=== PATIENT | female | born 1940 | race American Indian/Alaskan Native ===

== ENCOUNTER 2016-11-16 09:53 | Inpatient (IN) | payer MEDICARE ==
[2016-11-16] MEDS ORDERED: SUBLIMAZE IV ONE ×3 (11:30→13:30)
[2016-11-16] MEDS ORDERED: SUBLIMAZE ONE (11:36)
[2016-11-16 12:13] LABS: Hematocrit 34.7 % (30.3-42.9); Hemoglobin 11.3 gm/dl (10.1-14.3); Mean Corpuscular HGB Conc 32 % (30-34); Mean Corpuscular Hemoglobin 30 pg (28-32); Mean Corpuscular Volume 93 fl (79-97); Platelet Count 361 K/mm3 (140-440); Red Blood Count 3.73 M/mm3 (3.65-5.03); Red Cell Distribution Width 17.8 % (13.2-15.2)
[2016-11-16 12:14] LABS: White Blood Count 23.1 K/mm3 (4.5-11.0)
[2016-11-16 12:34] LABS: Erythrocyte Sedimentation Rate 100 mm/Hr (0-20)
[2016-11-16 12:37] LABS: Potassium TNR mmol/L (3.6-5.0); Sodium TNR mmol/L (137-145)
[2016-11-16 12:38] LABS: Anion Gap TNR mmol/L; BUN/Creatinine Ratio TNR; Blood Urea Nitrogen TNR mg/dL (7-17); Calcium TNR mg/dL (8.4-10.2); Carbon Dioxide TNR mmol/L (22-30); Chloride TNR mmol/L (98-107); Glucose TNR mg/dL (65-100)
[2016-11-16] MEDS ORDERED: VANCOMYCIN/NS 1 GM/250 ML 1 GM/250 ML BAG IV ONE (12:40)
[2016-11-16 13:38] LABS: Basophils % (Manual) 0 % (0.0-1.8); Blastocytes % (Manual) 0 %; Eosinophils % (Manual) 0 % (0.0-4.3)
[2016-11-16 13:39] LABS: Anisocytosis 1+; Diff Status Complete; Target Cells Few
--- NOTE | 2016-11-16 13:51 | Emergency Department Report ---
HPI - General Chief Complaint: Extremity Problem,Nontraumatic Time Seen by Provider: 11/16/16 11:21 - HPI HPI: 76-year-old afterward female presents to the emergency department with complaint of a swollen right upper extremity that is beginning progressively worse over the past 3 weeks. 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 Since that time it has become swollen with some list during an weeping. Patient has a history of end-stage renal disease on hemodialysis and the affected right upper extremity is where she has her dialysis fistula as well. She denies any fever, nausea, vomiting, chest pain or shortness of breath. She has not taken anything for symptoms prior to presentation. ED Past Medical Hx - Past Medical History Previous Medical History?: Yes Hx Hypertension: Yes Hx Renal Disease: Yes - Surgical History Past Surgical History?: Yes Additional Surgical History: hysterectomy, fistula in righ arm, neck surgery - Social History Smoking Status: Never Smoker Substance Use Type: None - Medications Home Medications: Home Medications Medication Instructions Recorded Confirmed Last Taken Type Clopidogrel Bisulfate [Plavix] 75 mg PO DAILY 11/11/13 11/11/13 11/10/13 History Sevelamer Carbonate [Renvela] 800 mg PO TIDWM 11/11/13 11/11/13 11/10/13 History cloNIDine [Catapres] 0.2 mg PO BID 11/11/13 11/11/13 11/10/13 History ED Review of Systems ROS: Stated complaint: RT ARM SWOLLEN AND PAINFUL Other details as noted in HPI Comment: All other systems reviewed and negative Constitutional: denies: chills, fever Eyes: denies: eye pain, eye discharge, vision change ENT: denies: ear pain, throat pain Respiratory: denies: cough, shortness of breath, wheezing Cardiovascular: edema. denies: chest pain, palpitations Gastrointestinal: denies: abdominal pain, nausea, diarrhea Musculoskeletal: joint swelling, arthralgia, myalgia Skin: lesions. denies: pruritus Neurological: denies: headache, weakness, paresthesias Physical Exam - Physical Exam Vital Signs: Vital Signs 11/16/16 11/16/16 10:58 12:00 Temperature 98.5 F Pulse Rate 87 Respiratory 16 18 Rate Blood Pressure 125/54 [Left] O2 Sat by Pulse 100 Oximetry Physical Exam: GENERAL: The patient is well-developed well-nourished. HEENT: Normocephalic. Atraumatic. Extraocular motions are intact. Patient has moist mucous membranes. Pupils equal reactive to light bilaterally. NECK: Supple. Trachea is midline. CHEST/LUNGS: Clear to auscultation. There is no respiratory distress noted. HEART/CARDIOVASCULAR: Regular. There is no tachycardia. There is no gallop rub or murmur. ABDOMEN: Abdomen is soft, nontender. Patient has normal bowel sounds. There is no abdominal distention. SKIN: Patient has diffuse swelling of the right upper extremity that is worst in the forearm and hand. There is a bulla or blister to the dorsum of the hand that is weeping serous fluid. There is no erythema or warmth. There is some darkening of the skin from the mid forearm distally. NEURO: The patient is awake, alert, and oriented. The patient is cooperative. The patient has no focal neurologic deficits. The patient has normal speech. MUSCULOSKELETAL: She has tenderness to palpation along the right upper extremity worst from the elbow distally. Patient has some decreased range of motion of the fingers and hand secondary to swelling but she is able to move all of the portions of her right upper extremity. Palpable radial pulse. ED Course Vital Signs 11/16/16 11/16/16 10:58 12:00 Temperature 98.5 F Pulse Rate 87 Respiratory 16 18 Rate Blood Pressure 125/54 [Left] O2 Sat by Pulse 100 Oximetry - Consultations Consultation #1: I spoke with the burn attending at [facility] who did not feel that this patient had any signs of Roberts-Jessee syndrome or TEN and did not accept transfer to their facility. This physician felt that maybe the patient had a vascular problem from her dialysis fistula. I spoke with the vascular surgeon on-call, Dr. Willett, who felt that the presentation sounded as if it could be a central stenosis versus a graft infection. He felt that it was a low probability and not a presentation that appear consistent with any type of ischemic condition. He recommends nothing by mouth after midnight and they will evaluate her and possibly do a fistulogram. 11/16/16 22:26 ED Medical Decision Making - Lab Data Result diagrams: 11/16/16 12:01 11/16/16 14:08 - Radiology Data Radiology results: report reviewed, image reviewed interpreted by me: X-ray of the right humerus, forearm and hand do not show any fracture, dislocation or any acute process other than diffuse soft tissue edema. CT of the right upper extremity without contrast shows severe diffuse soft tissue edema noted in the entire upper extremity with no evidence of focal abscess, osteoarthritis or other specific processes. An AV graft is noted medially in the lower arm. - Medical Decision Making 76-year-old female presents the emergency department with a few weeks of right upper show me swelling but then she developed even worse swelling to the hand and some blistering and weeping after dialysis yesterday. Patient is able to move her arm and fingers but it is restricted due to the amount of swelling. It is not an obvious cellulitis as there is no erythema or warmth. There is no purulent discharge but there is some serous weeping. Patient's labs are mostly unremarkable except for the patient has a 22,000 white count. There is some renal sufficiency with the patient is end-stage renal disease on dialysis. First thought was that this could be a venous blood clot so a venous Doppler was done that did not show any signs of upper extremity DVT. X-rays were done of the entire right upper extremity to rule out osteomyelitis and there were no lytic lesions or any acute process seen. A CT of the upper extremity was also done that did not show any specific focal abscess, osteomyelitis or specific process. This did not appear to be any emergent dermatological condition but the concern was that if there was enough to provide a needed that this could be treated more as a burn. I spoke with the burn attending at [place] who felt that this was not Rafael Jessee's or possibly TEN and did not require transfer to their facility. I spoke with the vascular surgeon who felt that it could be central stenosis versus graft infection and is willing to further evaluate the patient on the floor. Patient has been made nothing by mouth after midnight. Patient was covered with some IV antibiotics after getting blood cultures. There is been pain control and IV fluid resuscitation. Patient is been accepted for admission by the hospitalist, Dr. Lind. Critical Care Time: No Critical care attestation.: If time is entered above; I have spent that time in minutes in the direct care of this critically ill patient, excluding procedure time. ED Disposition Clinical Impression: Swelling of right upper extremity, ESRD (end stage renal disease), Skin bulla Leukocytosis Qualifiers: Leukocytosis type: unspecified Qualified Code(s): D72.829 - Elevated white blood cell count, unspecified Disposition: OP ADMITTED IP TO THIS HOSP Is pt being admited?: Yes Condition: Fair Time of Disposition: 22:40
--- NOTE | 2016-11-16 13:55 | Admit Criteria Form ---
Admission Criteria Documentation: SEPSIS and OTHER FEBRILE ILLNESS, W/O FOCAL INFECTION Clinical Indications for Admission to Inpatient Care ( Place 'X' for any and all applicable criteria): Admission is indicated for ANY ONE of the following (1)(2)(3)(4): [ ] I. Bacteremia [ ]II. Suspected or identified specific infection requiring hospitalization (eg, meningitis, endocarditis) [ ]III. Hemodynamic instability [ ]IV. Altered mental status [ ]V. Failure or unavailability of outpatient antimicrobial treatment [ ]. Hypoxemia [ ]VII. Seizures [ ]VIII. High-risk febrile neutropenia [ ]IX. Need for parenteral antibiotic in patient who is likely to abuse vascular access device (eg, injection drug user) [A](7) [ ]X. Temperature greater than 104.9 degrees F (40.5 degrees C) (oral) [X ]XI. Inpatient admission required rather than observation care because of ANY ONE of the following: []1) Specific infection identified that is too severe for outpatient treatment or observation care trial [ ]2) Metabolic disorder (eg, hypoglycemia, hyperglycemia, metabolic acidosis) that is severe or persistent [ ]3) Temperature greater than 103.1 degrees F (39.5 degrees C) ( oral) that is not responsive to observation care treatment [ ]4) IV fluid to replace significant ongoing (eg, for over 24 hours) losses (> 3 L/m2 per day) [ ]5) Supplemental oxygen or respiratory treatments for over 24 hours that is performable only in acute inpatient setting [ ]6) Parenteral nutrition regimen need that must be implemented on inpatient basis [ ]7) Strict or protective (eg, laminar flow) isolation [X ]8) Other condition, treatment or monitoring requiring inpatient admission Extended stay beyond goal length of stay may be needed for(1)(3) [ ]a) Sepsis or septic shock(22) [ ]b) Positive blood cultures [ ]c) Insufficient oral intake [ ]d) High-risk febrile neutropenia(29)(30) [ ]e) Continued fever and clinical instability [ ]f) Clinically active comorbid illness (e.g,heart failure, renal failure , diabetes) The original [facility] [employer] content created by Fabrice Vasques has been revised. The portions of the content which have been revised are identified through the use of italic text or in bold, and Fabrice Vasques has neither reviewed nor approved the modified material. All other unmodified content is copyright [facility]. Please see references footnoted in the original [facility] edition 2016 Admission Criteria Met: Yes
--- NOTE | 2016-11-16 13:59 | XRay Report ---
RIGHT HUMERUS, 2 VIEWS History: Swelling and pain. Findings: Osteopenia is noted. There is no evidence for fracture or malalignment. No bone lesion. Diffuse vascular calcifications and mild soft tissue edema are noted. Impression: Chronic findings as described. No acute process.
--- NOTE | 2016-11-16 14:00 | XRay Report ---
RIGHT FOREARM: History: Pain and swelling. There is mild osteopenia. The radius and ulna are intact. No fracture or bone lesion. Diffuse vascular calcifications and mild soft tissue swelling are noted. IMPRESSION: Osteopenia. Soft tissue swelling. No acute process is noted.
--- NOTE | 2016-11-16 14:02 | XRay Report ---
RIGHT HAND, 3 views: History: Pain and swelling. Osteopenia. The distal fifth digit has been amputated through the mid middle phalanx. There is an overlying bandage. It is unclear if this is acute or chronic. The remaining bony structures are intact. No fracture or bone lesion. Mild osteoarthritic changes are noted. Moderate diffuse soft tissue swelling. IMPRESSION: Amputation of the fifth digit. Osteopenia. Soft tissue swelling.
[2016-11-16 14:58] LABS: BUN/Creatinine Ratio 2.5; Calcium 10.2 mg/dL (8.4-10.2); Chloride 92.3 mmol/L (98-107)
[2016-11-16] MEDS ORDERED: D50W (25GM) IV ONE ×5 (15:07→21:04)
[2016-11-16 15:28] LABS: Potassium 4.9 mmol/L (3.6-5.0)
--- NOTE | 2016-11-16 16:32 | Cat Scan Report ---
CT of the right upper extremity without contrast. History: Swelling and pain. Findings: There is diffuse and severe subcutaneous edema throughout the entire right upper extremity. There is no evidence of focal fluid collection or other sign of focal abscess. An AV graft is identified medially with extensive vascular calcification. The bones of the upper extremity demonstrate no focal areas of destruction or other signs of osteomyelitis. Minimal periosteal reaction is seen in the mid humeral shaft, probably chronic. Impression: Severe diffuse soft tissue edema involving the entire upper extremity with no evidence of focal abscess, osteomyelitis, or other specific processes. An AV graft is noted medially in the lower arm.
--- NOTE | 2016-11-16 17:07 | History and Physical Report ---
Medications and Allergies Allergies Allergy/AdvReac Type Severity Reaction Status Date / Time codeine Allergy Hives Verified 11/11/13 12:27 Penicillins Allergy Hives Verified 11/11/13 12:27 Home Medications Medication Instructions Recorded Confirmed Last Taken Type Clopidogrel Bisulfate [Plavix] 75 mg PO DAILY 11/11/13 11/11/13 11/10/13 History Sevelamer Carbonate [Renvela] 800 mg PO TIDWM 11/11/13 11/11/13 11/10/13 History cloNIDine [Catapres] 0.2 mg PO BID 11/11/13 11/11/13 11/10/13 History Exam - Constitutional Vitals: Temp Pulse Resp BP Pulse Ox 98.4 F 91 H 16 100/56 100 11/16/16 15:48 11/16/16 15:48 11/16/16 15:48 11/16/16 15:48 11/16/16 15:48 Results - Labs CBC & Chem 7: 11/16/16 12:01 11/16/16 14:08 Labs: Abnormal lab results 11/16/16 11/16/16 11/16/16 Range/Units 12:01 14:08 15:41 WBC 23.1 H (4.5-11.0) K/mm3 RDW 17.8 H (13.2-15.2) % Seg Neuts % (Manual) 80.0 H (40.0-70.0) % Lymphocytes % (Manual) 1.0 L (13.4-35.0) % Monocytes % (Manual) 8.0 H (0.0-7.3) % Seg Neutrophils # Man 18.5 H (1.8-7.7) K/mm3 Lymphocytes # (Manual) 0.2 L (1.2-5.4) K/mm3 Monocytes # (Manual) 1.8 H (0.0-0.8) K/mm3 Chloride 92.3 L (98-107) mmol/L Carbon Dioxide 31 H (22-30) mmol/L Creatinine 3.6 H (0.7-1.2) mg/dL Glucose 38 L* (65-100) mg/dL POC Glucose 170 H (70-105)
[2016-11-16] MEDS ORDERED: NACL 0.9% 1000 ML 1,000 ML ONE (20:23)
--- NOTE | 2016-11-16 20:34 | Consultation ---
History of Present Illness - Reason for Consult Consult date: 11/16/16 Requesting physician: CHINO MCDOWELL - History of Present Illness 76 YO Female with HTN, ESRD on HD(MWF). Pt states that she has experienced swelling of her right arm. Pt states that she underwent dialysis today, and began having swelling of her right hand which extended up her arm. The swelling began about 2-3 hours after dialysis was completed. Pt states that she just does not feel well. Pt denies fever, chills, CP, Palpitations, NVD, syncope, recent ill contacts. Pt seen and evaluated in ED. CT of RUE reveals diffuse soft tissue swelling without abscess. Past History Past Medical History: ESRD, hypertension Medications and Allergies Allergies Allergy/AdvReac Type Severity Reaction Status Date / Time codeine Allergy Hives Verified 11/11/13 12:27 Penicillins Allergy Hives Verified 11/11/13 12:27 Home Medications Medication Instructions Recorded Confirmed Last Taken Type Clopidogrel Bisulfate [Plavix] 75 mg PO DAILY 11/11/13 11/11/13 11/10/13 History Sevelamer Carbonate [Renvela] 800 mg PO TIDWM 11/11/13 11/11/13 11/10/13 History cloNIDine [Catapres] 0.2 mg PO BID 11/11/13 11/11/13 11/10/13 History Review of Systems Constitutional: other (arm swelling) Exam - Constitutional Vitals: Temp Pulse Resp BP Pulse Ox 98.3 F 80 14 96/37 100 11/16/16 18:00 11/16/16 18:00 11/16/16 18:00 11/16/16 18:00 11/16/16 18:00 General appearance: Present: mild distress, disheveled - EENT Eyes: Present: PERRL ENT: hearing intact, clear oral mucosa - Neck Neck: Present: supple, normal ROM - Respiratory Respiratory effort: normal Respiratory: bilateral: CTA - Cardiovascular Heart Sounds: Present: S1 & S2. Absent: rub, click - Extremities Extremities: pulses symmetrical, No edema Extremity abnormal: edema, other (RUE confluent blister wit weeping, erythema around border, ) Peripheral Pulses: within normal limits - Abdominal General gastrointestinal: Present: soft, non-tender, non-distended, normal bowel sounds Female genitourinary: Present: normal - Integumentary Integumentary: Present: clear, warm, dry - Musculoskeletal Musculoskeletal: generalized weakness - Psychiatric Psychiatric: appropriate mood/affect, intact judgment & insight Results - Labs CBC & Chem 7: 11/16/16 12:01 11/16/16 14:08 Labs: Abnormal lab results 11/16/16 11/16/16 11/16/16 Range/Units 12:01 14:08 15:41 WBC 23.1 H (4.5-11.0) K/mm3 RDW 17.8 H (13.2-15.2) % Seg Neuts % (Manual) 80.0 H (40.0-70.0) % Lymphocytes % (Manual) 1.0 L (13.4-35.0) % Monocytes % (Manual) 8.0 H (0.0-7.3) % Seg Neutrophils # Man 18.5 H (1.8-7.7) K/mm3 Lymphocytes # (Manual) 0.2 L (1.2-5.4) K/mm3 Monocytes # (Manual) 1.8 H (0.0-0.8) K/mm3 Chloride 92.3 L (98-107) mmol/L Carbon Dioxide 31 H (22-30) mmol/L Creatinine 3.6 H (0.7-1.2) mg/dL Glucose 38 L* (65-100) mg/dL POC Glucose 170 H (70-105) Assessment and Plan - Patient Problems (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 Pt has blister that extends from the hand to the antecubital fossa. CT of RUE shows soft tissue edema without abscess. Recommend transfer for dermatologic evaluation, wound care, (2) ESRD (end stage renal disease) Current Visit: Yes Status: Acute Plan to address problem: Pt dialyzed today. currently stable. (3) HTN (hypertension) Current Visit: Yes Status: Acute Qualifiers: Hypertension type: H Plan to address problem: resume home medication.
[2016-11-16] MEDS ORDERED: MILK OF MAGNESIA PO PRN (20:48)
[2016-11-16] MEDS ORDERED: TYLENOL PO PRN (20:48)
[2016-11-16] MEDS ORDERED: DUONEB 0.5 MG-3 MG/3 ML SOLN IH PRN (20:48)
[2016-11-16] MEDS ORDERED: ZOFRAN IV PRN (20:48)
[2016-11-16] MEDS ORDERED: DULCOLAX PR PRN (20:48)
--- NOTE | 2016-11-16 20:53 | History and Physical Report ---
History of Present Illness Chief complaint: My arm is swollen History of present illness: 76 YO Female with HTN, ESRD on HD(MWF). Pt states that she has experienced swelling of her right arm. Pt states that she underwent dialysis today, and began having swelling of her right hand which extended up her arm. The swelling began about 2-3 hours after dialysis was completed. Pt states that she just does not feel well. Pt denies fever, chills, CP, Palpitations, NVD, syncope, recent ill contacts. Pt seen and evaluated in ED. CT of RUE reveals diffuse soft tissue swelling without abscess. Discussed with Transfer Center, as well as IR service. Pt pending fistulagram in AM as per IR service. Past History Past Medical History: ESRD, hypertension Past Surgical History: hysterectomy, Other (AVF) Social history: . denies: smoking, alcohol abuse, prescription drug abuse Family history: hypertension Medications and Allergies Allergies Allergy/AdvReac Type Severity Reaction Status Date / Time codeine Allergy Hives Verified 11/11/13 12:27 Penicillins Allergy Hives Verified 11/11/13 12:27 Home Medications Medication Instructions Recorded Confirmed Last Taken Type Clopidogrel Bisulfate [Plavix] 75 mg PO DAILY 11/11/13 11/11/13 11/10/13 History Sevelamer Carbonate [Renvela] 800 mg PO TIDWM 11/11/13 11/11/13 11/10/13 History cloNIDine [Catapres] 0.2 mg PO BID 11/11/13 11/11/13 11/10/13 History Active Meds: Active Medications Acetaminophen (Tylenol) 650 mg PO Q4H PRN PRN Reason: Pain MILD(1-3)/Fever >100.5/MATA Albuterol/Ipratropium (Duoneb 0.5 Mg-3 Mg/3 Ml Soln) 1 ampul IH Q6HRT PRN PRN Reason: Wheezing Bisacodyl (Dulcolax) 10 mg AL QDAY PRN PRN Reason: Constipation unrelieved by MOM Clonidine HCl (Catapres) 0.2 mg PO BID RAMU Clopidogrel Bisulfate (Plavix) 75 mg PO DAILY RAMU Levofloxacin/Dextrose (Levaquin 750mg/150ml) 750 mg in 150 mls @ 100 mls/hr IV Q24HR RAMU PRN Reason: Protocol Vancomycin HCl 1,500 mg/ (Sodium Chloride) 500 mls @ 334 mls/hr IV ONCE ONE PRN Reason: Protocol Stop: 11/16/16 22:20 Magnesium Hydroxide (Milk Of Magnesia) 30 ml PO Q4H PRN PRN Reason: Constipation Ondansetron HCl (Zofran) 4 mg IV Q8H PRN PRN Reason: N/V unrelieved by Reglan Sevelamer Carbonate (Renvela) 800 mg PO TIDWM RAMU Vancomycin HCl (Vancomycin Pharmacy To Dose) 1 each IV PKCONSULT RAMU PRN Reason: Protocol Review of Systems All systems: negative Constitutional: other (arm swelling) Exam - Constitutional Vitals: Temp Pulse Resp BP Pulse Ox 98.3 F 80 14 96/37 100 11/16/16 18:00 11/16/16 18:00 11/16/16 18:00 11/16/16 18:00 11/16/16 18:00 General appearance: Present: disheveled - EENT Eyes: Present: PERRL ENT: hearing intact, clear oral mucosa - Neck Neck: Present: supple, normal ROM - Respiratory Respiratory effort: normal Respiratory: bilateral: CTA - Cardiovascular Heart Sounds: Present: S1 & S2. Absent: rub, click - Extremities Extremities: pulses symmetrical, No edema Extremity abnormal: edema Peripheral Pulses: within normal limits - Abdominal General gastrointestinal: Present: soft, non-tender, non-distended, normal bowel sounds Female genitourinary: Present: normal - Integumentary Integumentary: Present: clear, warm, dry - Musculoskeletal Musculoskeletal: gait normal, strength equal bilaterally - Psychiatric Psychiatric: appropriate mood/affect, intact judgment & insight - Neurologic Neurologic: CNII-XII intact, moves all extremities Results - Labs CBC & Chem 7: 11/16/16 12:01 11/16/16 14:08 Labs: Abnormal lab results 11/16/16 11/16/16 11/16/16 Range/Units 12:01 14:08 15:41 WBC 23.1 H (4.5-11.0) K/mm3 RDW 17.8 H (13.2-15.2) % Seg Neuts % (Manual) 80.0 H (40.0-70.0) % Lymphocytes % (Manual) 1.0 L (13.4-35.0) % Monocytes % (Manual) 8.0 H (0.0-7.3) % Seg Neutrophils # Man 18.5 H (1.8-7.7) K/mm3 Lymphocytes # (Manual) 0.2 L (1.2-5.4) K/mm3 Monocytes # (Manual) 1.8 H (0.0-0.8) K/mm3 Chloride 92.3 L (98-107) mmol/L Carbon Dioxide 31 H (22-30) mmol/L Creatinine 3.6 H (0.7-1.2) mg/dL Glucose 38 L* (65-100) mg/dL POC Glucose 170 H (70-105) Assessment and Plan - Patient Problems (1) Sepsis Current Visit: Yes Status: Acute Qualifiers: Sepsis type: S Plan to address problem: Sepsis protocol: IV abx, ivf, supportive care, blood cultures, serial lactate, esr, crp, (2) 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 Pt has blister that extends from the hand to the antecubital fossa. CT of RUE shows soft tissue edema without abscess. discussed with transfer center, IR to consult suspect symptoms secondary to AFV malfunction. Pending Fistulagram in AM, (3) ESRD (end stage renal disease) Current Visit: Yes Status: Acute Plan to address problem: Pt dialyzed today. currently stable. (4) HTN (hypertension) Current Visit: Yes Status: Acute Qualifiers: Hypertension type: H Plan to address problem: resume home medication. (5) DVT prophylaxis Current Visit: Yes Status: Acute
[2016-11-16] MEDS ORDERED: VANCOMYCIN PHARMACY TO DOSE IV SCH (21:00)
[2016-11-16] MEDS ORDERED: PROVENTIL IH PRN (21:05)
--- NOTE | 2016-11-16 21:40 | Event Note ---
Date: 11/16/16 76 year old female with ESRD and RUE AV access and swelling of the RUE which has worsening over the last 3 weeks with worsening immediately after dialysis resulting in presentation to the hospital with blisters of her right upper extremity. Discussed with Dr. Stark who reports that there is a palpable radial pulse and the hand is warm without motor dysfunction or sensory dysfunction, but the extremity is painful. Not a vascular emergency. Given swelling with RUE AV access, will make patient NPO after MN for evaluation and probable fistulogram. Further recommendations can be provided tomorrow after evaluation the patient.
[2016-11-16] MEDS ORDERED: VANCOMYCIN VIAL 1,500 MG in NACL 0.9% 500 ML 500 ML IV ONE (22:00)
[2016-11-17] MEDS: CATAPRES PO SCH ×2 (01:50→10:46)
[2016-11-17] MEDS ORDERED: VANCOMYCIN/NS 500 MG/100 ML 500 MG/100 ML BAG IV ONE (02:00)
[2016-11-17] MEDS ORDERED: NACL 0.9% 1000 ML 1,000 ML IV ONE (02:09)
[2016-11-17] MEDS: RENVELA PO SCH ×2 (08:00→12:23)
--- NOTE | 2016-11-17 08:41 | Consultation ---
History of Present Illness Consult date: 11/17/16 Requesting physician: LUKASZ DUMONT Consult reason: atrial fibrillation History of present illness: The pt is a 76 YO Female with a past medical history significant for HTN, ESRD on HD (MWF), ? right pinky amputation in August per records. She presented with c/o RUE swelling and blistering. On evaluation, pt appears to be confused and is unsure how long RUE swelling and blistering has been present. Per the records, pt reported that she underwent dialysis as usual yesterday, and began having swelling of her right hand which extended up her arm. Per records, the swelling began about 2-3 hours after dialysis was completed. Following admission , CT of RUE revealed diffuse soft tissue swelling without abscess; WBC 23.1. Per ED MD notes, the burn attending at [facility] was contacted last PM and did not feel that the patient had any signs of Roberts-Jessee syndrome or TEN and did not accept transfer to their facility - This physician felt that maybe the patient had a vascular problem from her dialysis fistula. Pt pending possible fistulagram today as per IR service. Around 0600AM this morning, pt was noted to convert to AFib with RVR, HR 120s - 130s, BPs stable. 12-lead EKG this AM reveals AFib with RVR, RBBB. Pt does c/o some palpitations since last night. She denies any chest pain, SOB, n/v, diaphoresis, dizziness, or syncope. On evaluation, diffuse RUE swelling and blistering is noted, right pinky amputation noted with purulent drainage at amputation site. Vascular team at bedside. Past History Past Medical History: ESRD, hypertension Past Surgical History: hysterectomy, Other (AVF) Social history: . denies: smoking, alcohol abuse, prescription drug abuse Family history: hypertension Medications and Allergies Allergies Allergy/AdvReac Type Severity Reaction Status Date / Time codeine Allergy Hives Verified 11/11/13 12:27 Penicillins Allergy Hives Verified 11/11/13 12:27 Home Medications Medication Instructions Recorded Confirmed Last Taken Type Clopidogrel Bisulfate [Plavix] 75 mg PO DAILY 11/11/13 11/11/13 11/10/13 History Sevelamer Carbonate [Renvela] 800 mg PO TIDWM 11/11/13 11/11/13 11/10/13 History cloNIDine [Catapres] 0.2 mg PO BID 11/11/13 11/11/13 11/10/13 History Active Meds: Active Medications Acetaminophen (Tylenol) 650 mg PO Q4H PRN PRN Reason: Pain MILD(1-3)/Fever >100.5/MATA Albuterol (Proventil) 2.5 mg IH Q4HRT PRN PRN Reason: Shortness Of Breath Bisacodyl (Dulcolax) 10 mg [place] QDAY PRN PRN Reason: Constipation unrelieved by MOM Clonidine HCl (Catapres) 0.2 mg PO BID [facility] Last Admin: 11/17/16 01:50 Dose: Not Given Clopidogrel Bisulfate (Plavix) 75 mg PO DAILY [facility] Levofloxacin/Dextrose (Levaquin 750mg/150ml) 750 mg in 150 mls @ 100 mls/hr IV Q24HR [facility] PRN Reason: Protocol Stop: 11/17/16 11:29 Levofloxacin/Dextrose (Levaquin 500mg/100ml) 500 mg in 100 mls @ 100 mls/hr IV Q48HR [facility] Magnesium Hydroxide (Milk Of Magnesia) 30 ml PO Q4H PRN PRN Reason: Constipation Ondansetron HCl (Zofran) 4 mg IV Q8H PRN PRN Reason: N/V unrelieved by Reglan Pneumococcal Polyvalent Vaccine (Pneumovax 23) 0.5 ml IM .ONCE ONE Stop: 11/17/16 12:01 Sevelamer Carbonate (Renvela) 800 mg PO TIDWM [facility] Last Admin: 11/17/16 08:00 Dose: 800 mg Vancomycin HCl (Vancomycin Pharmacy To Dose) 1 each IV PKCONSULT [facility] PRN Reason: Protocol Review of Systems Cardiovascular: palpitations, no chest pain, no lightheadedness, no shortness of breath, no dyspnea on exertion Physical Examination Vital Signs Resp Pulse Ox 18 98 11/16/16 10:30 11/16/16 10:30 General appearance: no acute distress, other (confused ) HEENT: Positive: PERRL, Normocephaly, Sinus Tenderness Neck: Positive: neck supple, trachea midline Cardiac: Positive: irregularly irregular, S1/S2 Lungs: Positive: clear to auscultation, Normal Breath Sounds Neuro: Positive: Grossly Intact, Other (confused ) Abdomen: Positive: Unremarkable, Soft, Active Bowel Sounds. Negative: Tender Skin: Positive: Clear. Negative: Rash, Wound Musculoskeletal: Normal Range of Motion Extremities: Present: lower extr. pulses, edema (RUE edema, blistering, right pinky amputation noted with purulent drainage, RUE AV fistula/graft noted. ) Results 11/17/16 08:40 11/16/16 14:08 - Imaging and Cardiology Echo: pending EKG: report reviewed EKG interpretations - Telemetry EKG Rhythm: Atrial Fibrillation - EKG Supraventricular dysrhythmia: atrial fibrillation AV and intraventricular conduction: right bundle branch block Assessment and Plan Assessment: RUE swelling / RUE blistering / right pinky amputation with purulent drainage Sepsis Atrial fibrillation with RVR, suspected new onset - likely precipitated by acute infectious process HTN ESRD, on HD AMS / ? dementia Plan: Transfer pt to ICU per primary. Initiate IV lopressor, 5mg Q6H, as pt is currently NPO for possible vascular procedure. Hold for HR <60 and SBP <100. Pt with CHADS score of atleast 3 and thus initiation of anticoagulation in regards to atrial fibrillation is recommended. However, pt is pending possible vascular procedure today and ortho consultation. Will defer anticoagulation until vascular and ortho evaluations are completed and if cleared by vascular and ortho to initiate anticoagulation. Obtain echo. Obtain thyroid panel. Attempt to contact family (pt states she lives with her son) for additional information regarding pt's medical history and HPI. The patient has been seen in conjunction with Dr. Ted Yang who agrees with the assessment and plan of care.
[2016-11-17 09:10] LABS: Hematocrit 35.7 % (30.3-42.9); Hemoglobin 11.3 gm/dl (10.1-14.3); Mean Corpuscular HGB Conc 32 % (30-34); Mean Corpuscular Hemoglobin 30 pg (28-32); Mean Corpuscular Volume 95 fl (79-97); Platelet Count 344 K/mm3 (140-440); Red Blood Count 3.76 M/mm3 (3.65-5.03); Red Cell Distribution Width 17.7 % (13.2-15.2)
[2016-11-17 09:12] LABS: White Blood Count 27.5 K/mm3 (4.5-11.0)
--- NOTE | 2016-11-17 09:16 | Progress Note ---
Assessment and Plan Assessment and plan: -Significant right hand abscess with sepsis. Yesterday, ED staff tried to get patient transferred to [facility] for galltio joaquin syndrome type infection of right arm involving AVF, which was denied. I was the room when IR/Vascular Dr. Willett evaluated her HD access right arm site. That is when the right hand/pinky palmar abscess was discovered. So, i called [facility] transfer center again (spoke with Michael) to transfer for Hand surgery which we do not have here. She is septic because of this. The patient is extremely poor historian and doesnt give a good history. She is on iv abx -Afib w/ RVR, ordered EKG: will transfer to icu per Cardiology, consulted CCM -ESRD: renal to follow CCT 40 minutes History Interval history: Patient seen and examined immediately for Afib rvr. Pt had c/o right hand pains. No c/, sob. Hospitalist Physical - Physical exam Narrative exam: gen: ill appearing toxic, thin frail, a/o x 3 irreg irreg normal s1s2 lungs good air entry abd soft ntnd gbs skin/ext: right palmar side purulent drainage coming from the palmar surface of base of the 5th metapharngeal joint,; also with partial amputation right pinky at the PIP joint significant right arm and hand swelling, bullae, erythema from fingers to shoulder, red, warm and extreme tenderness right arm. neuro: no new focal deficits, msk: moving all ext x 4 psy: anxious - Constitutional Vitals: Temp Pulse Resp BP Pulse Ox 98.1 F 113 H 20 120/67 96 11/17/16 08:00 11/17/16 08:00 11/17/16 08:00 11/17/16 08:00 11/17/16 08:00 General appearance: Present: disheveled Results - Labs CBC & Chem 7: 11/16/16 12:01 11/16/16 14:08 Labs: Laboratory Last Values WBC 23.1 K/mm3 (4.5-11.0) H 11/16/16 12:01 RBC 3.73 M/mm3 (3.65-5.03) 11/16/16 12:01 Hgb 11.3 gm/dl (10.1-14.3) 11/16/16 12:01 Hct 34.7 % (30.3-42.9) 11/16/16 12: MCV 93 fl (79-97) 11/16/16 12:01 MCH 30 pg (28-32) 11/16/16 12:01 MCHC 32 % (30-34) 11/16/16 12:01 RDW 17.8 % (13.2-15.2) H 11/16/16 12:01 Plt Count 361 K/mm3 (140-440) 11/16/16 12:01 Add Manual Diff Complete 11/16/16 12: Total Counted 100 11/16/16 12:01 Seg Neutrophils % Paediatric Physiotherapist 11/16/16 12: Seg Neuts % (Manual) 80.0 % (40.0-70.0) H 11/16/16 12:01 Band Neutrophils % 11.0 % 11/16/16 12:01 Lymphocytes % (Manual) 1.0 % (13.4-35.0) L 11/16/16 12:01 Reactive Lymphs % (Man) 0 % 11/16/16 12:01 Monocytes % (Manual) 8.0 % (0.0-7.3) H 11/16/16 12:01 Eosinophils % (Manual) 0 % (0.0-4.3) 11/16/16 12:01 Basophils % (Manual) 0 % (0.0-1.8) 11/16/16 12:01 Metamyelocytes % 0 % 11/16/16 12:01 Myelocytes % 0 % 11/16/16 12:01 Promyelocytes % 0 % 11/16/16 12:01 Blast Cells % 0 % 11/16/16 12:01 Nucleated RBC % Not Reportable 11/16/16 12: Seg Neutrophils # Man 18.5 K/mm3 (1.8-7.7) H 11/16/16 12:01 Band Neutrophils # 2.5 K/mm3 11/16/16 12:01 Lymphocytes # (Manual) 0.2 K/mm3 (1.2-5.4) L 11/16/16 12:01 Abs React Lymphs (Man) 0.0 K/mm3 11/16/16 12:01 Monocytes # (Manual) 1.8 K/mm3 (0.0-0.8) H 11/16/16 12:01 Eosinophils # (Manual) 0.0 K/mm3 (0.0-0.4) 11/16/16 12:01 Basophils # (Manual) 0.0 K/mm3 (0.0-0.1) 11/16/16 12:01 Metamyelocytes # 0.0 K/mm3 11/16/16 12:01 Myelocytes # 0.0 K/mm3 11/16/16 12:01 Promyelocytes # 0.0 K/mm3 11/16/16 12:01 Blast Cells # 0.0 K/mm3 11/16/16 12:01 WBC Morphology Not Reportable 11/16/16 12:01 Hypersegmented Neuts Not Reportable 11/16/16 12:01 Hyposegmented Neuts Not Reportable 11/16/16 12:01 Hypogranular Neuts Not Reportable 11/16/16 12:01 Smudge Cells Not Reportable 11/16/16 12:01 Toxic Granulation Not Reportable 11/16/16 12:01 Toxic Vacuolation Not Reportable 11/16/16 12:01 Dohle Bodies Not Reportable 11/16/16 12:01 Pelger-Huet Anomaly Not Reportable 11/16/16 12:01 Oren Rods Not Reportable 11/16/16 12:01 Platelet Estimate Not Reportable 11/16/16 12:01 Clumped Platelets Not Reportable 11/16/16 12:01 Plt Clumps, EDTA Not Reportable 11/16/16 12:01 Large Platelets Not Reportable 11/16/16 12:01 Giant Platelets Not Reportable 11/16/16 12:01 Platelet Satelliting Not Reportable 11/16/16 12:01 Plt Morphology Comment Not Reportable 11/16/16 12:01 RBC Morphology Not Reportable 11/16/16 12:01 Dimorphic RBCs Not Reportable 11/16/16 12:01 Polychromasia Not Reportable 11/16/16 12:01 Hypochromasia Not Reportable 11/16/16 12:01 Poikilocytosis Not Reportable 11/16/16 12:01 Anisocytosis 1+ 11/16/16 12:01 Microcytosis Not Reportable 11/16/16 12:01 Macrocytosis Not Reportable 11/16/16 12:01 Spherocytes Not Reportable 11/16/16 12:01 Pappenheimer Bodies Not Reportable 11/16/16 12:01 Sickle Cells Not Reportable 11/16/16 12:01 Target Cells Few 11/16/16 12:01 Tear Drop Cells Not Reportable 11/16/16 12:01 Ovalocytes Not Reportable 11/16/16 12:01 Helmet Cells Not Reportable 11/16/16 12:01 Alvarado-Ripon Bodies Not Reportable 11/16/16 12:01 [place] Rings Not Reportable 11/16/16 12:01 [place] Cells Not Reportable 11/16/16 12:01 Bite Cells Not Reportable 11/16/16 12:01 Crenated Cell Not Reportable 11/16/16 12:01 Elliptocytes Not Reportable 11/16/16 12:01 Acanthocytes (Spur) Not Reportable 11/16/16 12:01 Rouleaux Not Reportable 11/16/16 12:01 Hemoglobin C Crystals Not Reportable 11/16/16 12:01 Schistocytes Not Reportable 11/16/16 12:01 Malaria parasites Not Reportable 11/16/16 12:01 ESR 48 mm/Hr (0-20) 11/16/16 21:18 Timothy Bodies Not Reportable 11/16/16 12:01 Hem Pathologist Commnt No 11/16/16 12:01 Sodium 141 mmol/L (137-145) 11/16/16 14:08 Potassium 4.9 mmol/L (3.6-5.0) 11/16/16 14:08 Chloride 92.3 mmol/L (98-107) L 11/16/16 14:08 Carbon Dioxide 31 mmol/L (22-30) H 11/16/16 14:08 Anion Gap 23 mmol/L 11/16/16 14:08 BUN 9 mg/dL (7-17) 11/16/16 14:08 Creatinine 3.6 mg/dL (0.7-1.2) H 11/16/16 14:08 Estimated GFR 15 ml/min 11/16/16 14:08 BUN/Creatinine Ratio 2.50 % 11/16/16 14:08 Glucose 38 mg/dL (65-100) L* 11/16/16 14:08 POC Glucose 132 (70-105) H 11/16/16 22:06 Lactic Acid 2.7 mmol/L (0.7-2.0) H* 11/16/16 23:11 Calcium 10.2 mg/dL (8.4-10.2) 11/16/16 14:08 C-Reactive Protein 49.20 mg/dL (0.00-1.30) H 11/16/16 23:11
[2016-11-17] MEDS ORDERED: LEVAQUIN 750MG/150ML 750 MG/150 ML BAG IV SCH (10:00)
[2016-11-17] MEDS ORDERED: PLAVIX PO SCH (10:00)
[2016-11-17 10:47] LABS: Blastocytes % (Manual) 0 %
[2016-11-17 10:48] LABS: Anisocytosis 1+; Basophils % (Manual) 0 % (0.0-1.8); Diff Status Complete; Eosinophils % (Manual) 0 % (0.0-4.3); Hypochromasia 1+; Target Cells Few
--- NOTE | 2016-11-17 10:51 | Consultation ---
History of Present Illness - Reason for Consult Consult date: 11/17/16 Malfunctioning Hemodialysis Access Requesting physician: CHINO MCDOWELL - History of Present Illness This patient is a 76-year-old female that was admitted via the emergency room on 11/16/2016. She is a very poor historian and therefore the history has been taken from the medical record. My attempts to reach the family were unsuccessful. This patient has end-stage renal disease and was reportedly at hemodialysis yesterday. She was sent to the emergency room due to progressive swelling and blistering to her right upper extremity. It is reported that this started approximately 3 weeks ago. There were initial concerns that this may represent a dermatologic condition. An outside facility was contacted, but the patient was not accepted in transfer. The patient has an ipsilateral A-V access which she uses for hemodialysis, therefore a vascular surgery consult was placed. Our on-call physician was notified about progressive swelling of the extremity and she was made nothing by mouth for possible fistulogram. Past History Past Medical History: dialysis, ESRD, hypertension Past Surgical History: hysterectomy, Other (appears to be a RUE upper arm avf. She's had some sort of stent placed in the RUE (based upon x-ray). Reports of a recent right 5th finger partial amputation. O/w surgical history unknown.) Social history: , lives with family (son, Mario based upon pt's report ). denies: smoking, alcohol abuse, prescription drug abuse Family history: hypertension Medications and Allergies Allergies Allergy/AdvReac Type Severity Reaction Status Date / Time codeine Allergy Hives Verified 11/11/13 12:27 Penicillins Allergy Hives Verified 11/11/13 12:27 Home Medications Medication Instructions Recorded Confirmed Last Taken Type Clopidogrel Bisulfate [Plavix] 75 mg PO DAILY 11/11/13 11/11/13 11/10/13 History Sevelamer Carbonate [Renvela] 800 mg PO TIDWM 11/11/13 11/11/13 11/10/13 History cloNIDine [Catapres] 0.2 mg PO BID 11/11/13 11/11/13 11/10/13 History Active Meds: Active Medications Acetaminophen (Tylenol) 650 mg PO Q4H PRN PRN Reason: Pain MILD(1-3)/Fever >100.5/MATA Albuterol (Proventil) 2.5 mg IH Q4HRT PRN PRN Reason: Shortness Of Breath Bisacodyl (Dulcolax) 10 mg SD QDAY PRN PRN Reason: Constipation unrelieved by MOM Clonidine HCl (Catapres) 0.2 mg PO BID [facility] Last Admin: 11/17/16 01:50 Dose: Not Given Clopidogrel Bisulfate (Plavix) 75 mg PO DAILY [facility] Levofloxacin/Dextrose (Levaquin 750mg/150ml) 750 mg in 150 mls @ 100 mls/hr IV Q24HR [facility] PRN Reason: Protocol Stop: 11/17/16 11:29 Levofloxacin/Dextrose (Levaquin 500mg/100ml) 500 mg in 100 mls @ 100 mls/hr IV Q48HR [facility] Magnesium Hydroxide (Milk Of Magnesia) 30 ml PO Q4H PRN PRN Reason: Constipation Metoprolol Tartrate (Lopressor) 5 mg IV Q6HR [facility] Ondansetron HCl (Zofran) 4 mg IV Q8H PRN PRN Reason: N/V unrelieved by Reglan Pneumococcal Polyvalent Vaccine (Pneumovax 23) 0.5 ml IM .ONCE ONE Stop: 11/17/16 12:01 Sevelamer Carbonate (Renvela) 800 mg PO TIDWM [facility] Last Admin: 11/17/16 08:00 Dose: 800 mg Vancomycin HCl (Vancomycin Pharmacy To Dose) 1 each IV PKCONSULT [facility] PRN Reason: Protocol Review of Systems ROS unobtainable: due to mental status Exam - Constitutional Vitals: Temp Pulse Resp BP Pulse Ox 98.1 F 113 H 20 120/67 96 11/17/16 08:00 11/17/16 08:00 11/17/16 08:00 11/17/16 08:00 11/17/16 08:00 General appearance: Present: no acute distress - EENT Eyes: Present: EOM intact ENT: hearing intact - Neck Neck: Present: supple - Respiratory Respiratory effort: normal - Cardiovascular Rhythm: irregularly irregular (New onset A-fib) - Extremities Extremities: normal temperature (does not appear ischemic.), abnormal (His upper arm av access, appears to be a fistula. Calcified with pulse greater than thrill.) Extremity abnormal: edema (Right forearm and hand swelling, Distal tip of the right 5th finger ulcerated and draining foul serous fluid. Exquisitely tender to manipulation. Large blisters to right forearm with diffuse erythema up to elbow. ) - Psychiatric Psychiatric: appropriate mood/affect, no intact judgment & insight, no memory intact, cooperative, no agitated - Neurologic Neurologic: no focal deficits Results - Labs CBC & Chem 7: 11/17/16 08:40 11/16/16 14:08 Labs: Abnormal lab results 11/16/16 11/16/16 11/16/16 Range/Units 20:56 22:06 23:11 WBC (4.5-11.0) K/mm3 RDW (13.2-15.2) % POC Glucose 50 L 132 H (70-105) Lactic Acid (0.7-2.0) mmol/L C-Reactive Protein 49.20 H (0.00-1.30) mg/dL 11/16/16 11/17/16 Range/Units 23:11 08:40 WBC 27.5 H (4.5-11.0) K/mm3 RDW 17.7 H (13.2-15.2) % POC Glucose (70-105) Lactic Acid 2.7 H* (0.7-2.0) mmol/L C-Reactive Protein (0.00-1.30) mg/dL Assessment and Plan This patient was admitted with progressive right arm swelling with skin blistering. A vascular surgery consult was requested to evaluate for possible AV fistula malfunction which may have contributed to the upper extremity edema. The patient has been evaluated. The fifth finger has an open ulceration which has foul drainage and associated hand swelling. Erythema appears to be extending from the hand up to the mid to proximal forearm. The upper arm fistula has a palpable pulse (more than thrill). It does not appear infected upon gross inspection. We discussed the situation with the hospitalist. We recommended urgent evaluation by a hand surgeon. She has developed an acute onset of atrial fibrillation following admission. The hospitalist is making arrangements to have the patient transferred to [facility] as a hand surgeon is not available at this facility. The patient's AV fistula apparently worked adequately with her last treatment. Do not recommend any vascular intervention to her av access until her upper extremity infection has been treated to completion. - Patient Problems (1) Blister of upper arm with infection Current Visit: Yes Status: Acute Qualifiers: Encounter type: E Laterality: L (2) Sepsis Current Visit: Yes Status: Acute Qualifiers: Sepsis type: S (3) Dialysis AV fistula malfunction Current Visit: Yes Status: Acute Qualifiers: Encounter type: E (4) New onset a-fib Current Visit: Yes Status: Acute (5) ESRD (end stage renal disease) Current Visit: Yes Status: Acute (6) Leukocytosis Current Visit: Yes Status: Acute Qualifiers: Leukocytosis type: unspecified Qualified Code(s): D72.829 - Elevated white blood cell count, unspecified
--- NOTE | 2016-11-17 11:53 | Discharge Summary ---
Providers - Providers Date of Admission: 11/16/16 20:49 Date of discharge: 11/17/16 Attending physician: LUKASZ DUMONT 11/16/16 20:50 Consult to Physician [CONS] Routine Consulting Provider: SHAYY FREITAS Reason For Exam: R UE swelling Place consult to:: NYDIA Notified:: SHAYY FREITAS 11/17/16 08:28 Consult to Physician [CONS] Routine Consulting Provider: DENVER LOCKETT Reason For Exam: afib with RVR Place consult to:: Ted Lockett MD Notified:: 11/17/16 09:02 Consult to Physician [CONS] Routine Consulting Provider: MYRNA REID V Reason For Exam: right hand abscess Place consult to:: Erica ZUNIGA Notified:: Phone number called:: [phone] Was contact made?: Yes If yes, spoke with:: TOMMY Time called:: 09:20 11/17/16 09:23 Consult to Physician [CONS] Routine Consulting Provider: EUGENE ALICIA Reason For Exam: esrd on HD Place consult to:: Jennifer ZUNIGA Notified:: jennifer 11/17/16 09:24 Consult to Physician [CONS] Routine Consulting Provider: Reason For Exam: CCM Place consult to:: Jack ZUNIGA Primary care physician: [employer] [employer] Hospitalization Condition: Stable Hospital course: This patient was admitted with progressive right arm swelling with skin blistering. A vascular surgery consult was requested to evaluate for possible AV fistula malfunction which may have contributed to the upper extremity edema. The patient has been evaluated. The fifth finger has an open ulceration which has foul drainage and associated hand swelling. Erythema appears to be extending from the hand up to the mid to proximal forearm. The upper arm fistula has a palpable pulse (more than thrill). It does not appear infected upon gross inspection. We discussed the situation with the hospitalist. We recommended urgent evaluation by a hand surgeon. She has developed an acute onset of atrial fibrillation following admission. The hospitalist is making arrangements to have the patient transferred to [facility] as a hand surgeon is not available at this facility. The patient's AV fistula apparently worked adequately with her last treatment. Do not recommend any vascular intervention to her av access until her upper extremity infection has been treated to completion -per Vascular Surgery "The pt is a 76 YO Female with a past medical history significant for HTN, ESRD on HD (MWF), ? right pinky amputation in August per records. She presented with c/o RUE swelling and blistering. On evaluation, pt appears to be confused and is unsure how long RUE swelling and blistering has been present. Per the records, pt reported that she underwent dialysis as usual yesterday, and began having swelling of her right hand which extended up her arm. Per records, the swelling began about 2-3 hours after dialysis was completed. Following admission , CT of RUE revealed diffuse soft tissue swelling without abscess; WBC 23.1. Per ED MD notes, the burn attending at [facility] was contacted last PM and did not feel that the patient had any signs of Roberts-Jessee syndrome or TEN and did not accept transfer to their facility - This physician felt that maybe the patient had a vascular problem from her dialysis fistula. Pt pending possible fistulagram today as per IR service. Around 0600AM this morning, pt was noted to convert to AFib with RVR, HR 120s - 130s, BPs stable. 12-lead EKG this AM reveals AFib with RVR, RBBB. Pt does c/o some palpitations since last night. She denies any chest pain, SOB, n/v, diaphoresis, dizziness, or syncope. On evaluation, diffuse RUE swelling and blistering is noted, right pinky amputation noted with purulent drainage at amputation site. Vascular team at bedside. RUE swelling / RUE blistering / right pinky amputation with purulent drainage Sepsis Atrial fibrillation with RVR, suspected new onset - likely precipitated by acute infectious process HTN ESRD, on HD AMS / ? dementia Plan: Transfer pt to ICU per primary. Initiate IV lopressor, 5mg Q6H, as pt is currently NPO for possible vascular procedure. Hold for HR <60 and SBP <100. Pt with CHADS score of atleast 3 and thus initiation of anticoagulation in regards to atrial fibrillation is recommended. However, pt is pending possible vascular procedure today and ortho consultation. Will defer anticoagulation until vascular and ortho evaluations are completed and if cleared by vascular and ortho to initiate anticoagulation. Obtain echo. Obtain thyroid panel. Attempt to contact family (pt states she lives with her son) for additional information regarding pt's medical history and HPI. The patient has been seen in conjunction with Dr. Ted Lockett who agrees with the assessment and plan of care." -per Cardiology -Significant right hand abscess at right pinky amputation site with sepsis. Yesterday, ED staff tried to get patient transferred to [place] for gallito jessee syndrome type infection of right arm involving AVF, which was denied. I was the room when IR/Vascular Dr. Freitas evaluated her HD access right arm site. That is when the right hand/pinky palmar abscess was discovered. So, i called [place] transfer center again (spoke with Michael) to transfer for Hand surgery which we do not have here. She is septic because of this. The patient is extremely poor historian and doesnt give a good history. She is on iv abx -Afib w/ RVR, ordered EKG: will transfer to icu per Cardiology, consulted CCM -ESRD: renal to follow CCT 40 minutes She has received iv vanc and iv levaquin (allergic with PCN); will give iv clindamycin per Dr. Sandoval's recommendation. Patient has been accepted by ICU attending Dr. Sandoval at [facility]. Disposition: DC/TX ANOTHER TYPE HEALTHCARE Time spent for discharge: 40 minutes Core Measure Documentation - Palliative Care Palliative Care/ Comfort Measures: Not Applicable - Core Measures Any of the following diagnoses?: none - VTE Discharge Requirements Deep Vein Thrombosis/Pulmonary Embolism Present on Admission: No Has pt received <5 days of overlap therapy or INR<2.0: No Anticoagulant overlap therapy prescribed at discharge: No Contraindication No Overlap Therapy order at DC: Not Indicated Exam - Physical Exam Narrative exam: gen: ill appearing toxic, thin frail, a/o x 3 irreg irreg normal s1s2 lungs good air entry abd soft ntnd gbs skin/ext: right palmar side purulent drainage coming from the palmar surface of base of the 5th metapharngeal joint,; also with partial amputation right pinky at the PIP joint significant right arm and hand swelling, bullae, erythema from fingers to shoulder, red, warm and extreme tenderness right arm. neuro: no new focal deficits, msk: moving all ext x 4 psy: anxious - Constitutional Vitals: Temp Pulse Resp BP Pulse Ox 98.1 F 92 H 20 124/69 96 11/17/16 08:00 11/17/16 10:46 11/17/16 08:00 11/17/16 10:46 11/17/16 08:00 Plan Diet: renal Additional Instructions: Transfer to [facility] Follow up with: PRIMARY CARE, [Primary Care Provider] - 3-5 Days
[2016-11-17] MEDS ORDERED: PNEUMOVAX 23 IM ONE (12:00)
[2016-11-17] MEDS ORDERED: LOPRESSOR IV SCH (12:00)
[2016-11-17 13:06] VITALS: BP 118/70
--- NOTE | 2016-11-17 13:34 | Consultation ---
History of Present Illness - Reason for Consult Consult date: 11/17/16 end stage renal disease Requesting physician: LUKASZ DUMONT - History of Present Illness This patient is a 76-year-old female with hx of ESRD on HD on MWF schedule at [facility], saw her on dialysis in out patient clinic where she was noted to have severely swollen right UE with blisters, AMS and hypoglycemia and sent to the hospital for further evaluation and treatment. She had right pinky amputation done several weeks back and her swelling started after the surgery. Per family pt has been seen by her hand surgeon with the c/o the swelling but no intervention was done. Swelling got progressively worse in the last 3 weeks. No associated fever/chills. No aggravating or relieving factors. Pt lethargic not not able to give detailed history but history taken from HD nurses in out patient center. Since admission to [facility] she has had CT arm/hand with showed severe diffuse soft tissue edema. She was also found to have right pinky amputation site abscess. She is started on antibiotics and is awaiting for transfer t [facility] for further management(hand surgery). Past History Past Medical History: dialysis, ESRD, hypertension Past Surgical History: hysterectomy, Other (appears to be a RUE upper arm avf. She's had some sort of stent placed in the RUE (based upon x-ray). Reports of a recent right 5th finger partial amputation. O/w surgical history unknown.) Social history: , lives with family (son, Mario based upon pt's report ). denies: smoking, alcohol abuse, prescription drug abuse Family history: hypertension Medications and Allergies Allergies Allergy/AdvReac Type Severity Reaction Status Date / Time codeine Allergy Hives Verified 11/11/13 12:27 Penicillins Allergy Hives Verified 11/11/13 12:27 Home Medications Medication Instructions Recorded Confirmed Last Taken Type Clopidogrel Bisulfate [Plavix] 75 mg PO DAILY 11/11/13 11/11/13 11/10/13 History Sevelamer Carbonate [Renvela] 800 mg PO TIDWM 11/11/13 11/11/13 11/10/13 History cloNIDine [Catapres] 0.2 mg PO BID 11/11/13 11/11/13 11/10/13 History Review of Systems All systems: negative Constitutional: fatigue, weakness, malaise, poor appetite Ears, nose, mouth and throat: no tinnitis, no decreased hearing Breasts: deferred Cardiovascular: no chest pain, no orthopnea, no palpitations Respiratory: no cough, no hemoptysis, no shortness of breath Gastrointestinal: no abdominal pain, no nausea, no vomiting, no diarrhea Genitourinary Female: no pelvic pain, no flank pain Rectal: no pain, no incontinence Musculoskeletal: other (right arm swelling, pain ) Integumentary: no rash, no pruritis Neurological: no paralysis, no weakness, no seizures, no syncope Psychiatric: memory loss, no anxiety Endocrine: no cold intolerance, no heat intolerance Hematologic/Lymphatic: no easy bruising, no easy bleeding Exam - Vital Signs Vital signs: Vital Signs Resp Pulse Ox 18 98 11/16/16 10:30 11/16/16 10:30 - General Appearance General appearance: well-developed, well-nourished, appears stated age, fatigue , frail EENT: PERRL, mucous membranes moist Neck: Present: neck supple, trachea midline. Absent: JVD/HJR, Masses Respiratory: Decreased Breath Sounds Heart: regular, normal heart rate, S1S2, no murmurs Gastrointestinal: Present: normoactive bowel sounds. Absent: tenderness Integumentary: warm and dry, other (RUE blisters ) Neurologic: no focal deficit, CN 3-12 intact, obtunded Musculoskeletal: Present: other (RUE with AVF +thrill, RUE severly swollen, tender, blisters present, s/p right pinky amputation ) Results - Lab Results 11/17/16 08:40 11/16/16 14:08 Most recent lab results Calcium 10.2 mg/dL (8.4-10.2) 11/16/16 14:08 Assessment and Plan 1. ESRD on HD 2. Right hand abbess with Sepsis 3. Hypoglycemia 2/2 likely sepsis 4. Afib with RVR 5. Anemia of ESRD 6. AMS 2/2 infectious process Plan: Antibiotics Reviewed vascular/ID notes Possible transfer to [facility] for hand surgeon evaluation If pt remains at [facility] will evaluate her for dialysis in am Thank you for the consult .
[2016-11-17] MEDS ORDERED: CLEOCIN 600 MG/50 mL 600 MG/50 ML BAG IV SCH (14:00)
--- NOTE | 2016-11-17 16:53 | Vascular Lab Report ---
RIGHT UPPER EXTREMITY VENOUS DUPLEX: REASON FOR EXAM: Right arm swelling COMMENTS ON THE RIGHT: All arm veins visualized are freely compressible without evidence of internal echogenicity. The subclavian and internal jugular veins are free of thrombus. Flow is spontaneous and phasic throughout. Patent right AV graft. COMMENTS ON THE LEFT: The subclavian and internal jugular veins are free of thrombus. IMPRESSION: No evidence of acute or chronic deep venous thrombosis in the right upper extremity. Consider proximal stenosis secondary to arterial flow. Consider fistulogram.
[2016-11-19] MEDS ORDERED: LEVAQUIN 500MG/100ML 500 MG/100 ML BAG IV SCH (10:00)
== END 2016-11-17 12:09 | disposition short-term general hospital (02) | DRG 871 ==
LOC: ED 09:53 → CC2 20:49
PROVIDERS: ADMIT Internal Medicine; ATTEND Internal Medicine
DX: A41.9 Sepsis, unspecified organism (principal); N18.6 End stage renal disease; L51.2 Toxic epidermal necrolysis [Lyell]; I12.0 Hypertensive chronic kidney disease with stage 5 chronic kidney disease or end stage renal disease; L02.511 Cutaneous abscess of right hand; F03.90 Unspecified dementia, unspecified severity, without behavioral disturbance, psychotic disturbance, mood disturbance, and anxiety; I48.91 Unspecified atrial fibrillation; S40.829A Blister (nonthermal) of unspecified upper arm, initial encounter; D63.1 Anemia in chronic kidney disease; Z90.710 Acquired absence of both cervix and uterus; Z82.49 Family history of ischemic heart disease and other diseases of the circulatory system; Z88.0 Allergy status to penicillin; Z88.6 Allergy status to analgesic agent; Z99.2 Dependence on renal dialysis
CPT/HCPCS: 36415; 80048; 82140; 82962; 84439; 84443; 85007; 85025; 85652; 86140; 87040; 90732; 93005; 93010; 96365; 96375; 96376; J1956; J3010; J3370; J7030; J7040